=== PATIENT | male | born 1990 | race Caucasian/White ===

== ENCOUNTER 2017-06-14 09:26 | Day surgery (SDC) | payer OTHER ==
--- NOTE | 2017-06-13 09:51 | EKG REPORT ---
SEVERITY:- NORMAL ECG - SINUS RHYTHM : Confirmed by: Alen Peoples 13-Jun-2017 09:51:10
[2017-06-13 10:21] LABS: HEMATOCRIT 44.9 % (37.9-51.0); HEMOGLOBIN 15.7 g/dL (13.5-17.0); MEAN CORPUSCULAR HEMOGLOBIN 31.9 pg (27.0-33.4); MEAN CORPUSCULAR VOLUME 91 fl (80-97); PLATELET COUNT 210 10^3/uL (150-450); RED BLOOD COUNT 4.94 10^6/uL (4.35-5.55); RED CELL DISTRIBUTION WIDTH 12.5 % (11.5-14.0)
[~2017-06-14 09:26] MED LIST: ACETAMINOPHEN 325 MG TABLET PO PRN; BUPIVACAINE HCL 0.25 % INJ/PF (2.5 MG/1 ML) 30 ML VIAL ONE; DEXAMETHASONE SOD PHOSPHATE INJ 4 MG/1 ML VIAL ONE; LACTATED RINGERS 1000 ML IV PRN; LIDOCAINE 0.5% INJ-PF (5 MG/ML) 50 ML SDV SUBCUT PRN; LIDOCAINE 2% INJ-PF (20 MG/ML) 2 ML AMPUL ONE; METOCLOPRAMIDE HCL INJ/PF 10 MG/2 ML SDV ONE; ONDANSETRON HCL INJ/PF 4 MG/2 ML SDV ONE; SUCCINYLCHOLINE CHLORIDE INJ 200 MG/10 ML VIAL ONE; VANCOMYCIN HCL 1,000 MG in DEXTROSE 5%-WATER 250 ML IV PRN
[2017-06-14] MEDS ORDERED: MORPHINE SULFATE 10 MG/ML INJ IV PRN (10:53)
[2017-06-14] MEDS ORDERED: FENTANYL CITRATE INJ/PF 100 MCG/2 ML AMPUL IV PRN ×3 (10:53)
[2017-06-14] MEDS ORDERED: ONDANSETRON HCL INJ/PF 4 MG/2 ML SDV IV PRN ×2 (10:53→13:03)
[2017-06-14] MEDS ORDERED: PROMETHAZINE HCL INJ 25 MG/1 ML VIAL IV PRN ×2 (10:53)
[2017-06-14] MEDS ORDERED: DIPHENHYDRAMINE HCL 50 MG/ML VIAL IV PRN (10:53)
[2017-06-14] MEDS ORDERED: MEPERIDINE HCL/PF INJ 25 MG/1 ML DISP.SYRIN IV PRN (10:53)
[2017-06-14] MEDS ORDERED: FENTANYL CITRATE INJ/PF 100 MCG/2 ML AMPUL ONE ×2 (11:10→11:12)
[2017-06-14] MEDS ORDERED: DEXMEDETOMIDINE INJ 80 MCG/20 ML VIAL IV ONE ×2 (11:11→12:54)
[2017-06-14] MEDS ORDERED: ACETAMINOPHEN 100 ML IV ONE (11:11)
[2017-06-14] MEDS ORDERED: PROPOFOL INJ 200 MG/20 ML VIAL IV ONE (11:11)
[2017-06-14] MEDS ORDERED: MIDAZOLAM 2 MG/2 ML INJ ONE (11:11)
[2017-06-14] MEDS ORDERED: EPHEDRINE SULFATE INJ 50 MG/1 ML AMPULE ONE (11:11)
[2017-06-14] MEDS ORDERED: OXYCODONE-ACETAMINOPHEN 5-325 MG TABLET PO PRN (13:03)
[2017-06-14] MEDS ORDERED: RINGERS SOLUTION,LACTATED 1,000 ML IV PRN (13:03)
--- NOTE | 2017-06-14 13:03 | PDOC DISCHARGE SUMMARY ---
Discharge Summary (SDC) - Discharge Final Diagnosis: Right inguinal hernia Date of Surgery: 06/14/17 Discharge Date: 06/14/17 Condition: Good Treatment or Instructions: Right inguinal hernia repair with mesh. May discharge patient home when met discharge criteria. Follow-up with me in 2 weeks. Stay active but avoid strenuous activity. May shower tomorrow night. Keep Steri-Strips on. Prescriptions: Oxycodone HCl/Acetaminophen [Percocet 5-325 mg Tablet] 1 tab PO ASDIR PRN #25 tablet PRN Reason: Discharge Diet: As Tolerated Discharge Activity: Activity As Tolerated - Stay active but avoid strenuous activity. Report the Following to Your Physician Immediately: Fever over 101 Degrees, Unusual Bleeding, Redness, Drainage-Foul Smelling
--- NOTE | 2017-06-14 13:06 | Operative Report ---
Operative Report DATE OF SURGERY: 06/14/17 PREOPERATIVE DIAGNOSIS: Right inguinal hernia POSTOPERATIVE DIAGNOSIS: Right inguinal hernia OPERATION: Right inguinal hernia repair with mesh ANESTHESIA: GA TISSUE REMOVED OR ALTERED: Hernia sac COMPLICATIONS: None ESTIMATED BLOOD LOSS: Minimal INTRAOPERATIVE FINDINGS: Right indirect inguinal hernia PROCEDURE: Informed consent was obtained. Patient was brought to the operating room placed on the operating room table in the supine position. After satisfactory induction of general anesthesia, patient's right groin was prepped and draped in usual sterile fashion. A transverse right groin incision was made. Dissection was carried down and the external oblique was opened along its fascial fibers thus opening the external inguinal ring. The cord was mobilized at the pubic tubercle. The ilioinguinal nerve was identified and preserved during the dissection. Dissection at the anterior aspect of the cord revealed an indirect inguinal hernia sac. The hernia sac was dissected to the level of the internal ring. It was opened. There were no incarcerated contents. High ligation of the sac was then performed at the level of the internal ring and the sac was excised. Mesh repair was performed with Covidien pro-weigher alloy mesh. The sling ends were brought back together in a sling-like configuration thus re-creating the internal inguinal ring. The mesh laid flat with excellent coverage. A single fixation suture was placed at the pubic tubercle. Hemostasis appeared excellent. Marcaine was injected. The external oblique was closed over the repair and the cord structures using running Vicryl suture. Kaylan's fascia was closed with interrupted Vicryl sutures. Skin was closed with subcuticular running Monocryl suture. Patient tolerated procedure well with no apparent complications and was taken to the recovery area in stable condition.
[2017-06-14] MEDS ORDERED: OXYCODONE-ACETAMINOPHEN 5-325 MG TABLET ONE (14:00)
[2017-06-14 15:29] VITALS: BP 121/75
== END 2017-06-14 14:50 | disposition home or self-care (01) ==
LOC: OROUT 09:26
PROVIDERS: ATTEND Surgery
PROC: 0YU50JZ Supplement Right Inguinal Region with Synthetic Substitute, Open Approach (ICD-10-PCS; principal; 2017-06-14 11:30)
DX: K40.90 Unilateral inguinal hernia, without obstruction or gangrene, not specified as recurrent (principal); Z88.0 Allergy status to penicillin
CPT/HCPCS: 49505; 93005; 36415; 85027; 88302 ×2; 93010; C1781; J2250; J1100; J3490 ×2; J3010; J2765; J0330; J2405; J7060; J2704; J3370; J0131; 830

== ENCOUNTER 2017-09-13 21:16 | Emergency (ER) | payer SELFPAY ==
[2017-09-13] MEDS ORDERED: LIDOCAINE 1% INJ-PF (10 MG/ML) 30 ML SDV INJ ONE (21:28)
--- NOTE | 2017-09-13 22:42 | ER Document Report ---
HPI - HPI Pain Level: 4 Notes: Patient is a 27-year-old male with no significant past medical history who presents to the ED complaining of a laceration to the left thumb and injury with a hatchet prior to arrival. Patient states that part of his distal thumb appeared like a flap, but he was able to control the bleeding with tape/gauze. Patient states that he is still able to move his thumb otherwise without any difficulties. He has no associated numbness or tingling. Patient reports tetanus up-to-date within the last 2 years. He has an allergy to penicillins which was when he was a child and spent the night in the hospital due to the allergic reaction. Denies any IV drug use. Denies any headache, fever, neck pain, URI, sore throat, chest pain, palpitations, syncope, cough, shortness of breath, wheeze, dyspnea, abdominal pain, nausea/vomiting/diarrhea, urinary retention, dysuria, hematuria, numbness/tingling, muscle paralysis/weakness, or rash. - ROS Systems Reviewed and Negative: Yes All other systems reviewed and negative - CONSTITUTIONAL Constitutional: DENIES: Fever, Chills - EENT EENT: DENIES: Sore Throat, Ear Pain, Eye problems - NEURO Neurology: DENIES: Headache, Weakness, Vision blurred, Dizzinesss / Vertigo - CARDIOVASCULAR Cardiovascular: DENIES: Chest pain - RESPIRATORY Respiratory: DENIES: Trouble Breathing, Coughing - GASTROINTESTINAL Gastrointestinal: DENIES: Abdominal Pain, Black / Bloody Stools - URINARY Urinary: DENIES: Dysuria, Urgency, Frequency - MUSCULOSKELETAL Musculoskeletal: REPORTS: Extremity pain - L thumb-cut with axe Past Medical History - Social History Smoking Status: Never Smoker Family History: Reviewed & Not Pertinent Patient has suicidal ideation: No Patient has homicidal ideation: No - Past Medical History Cardiac Medical History: Denies: Hx Coronary Artery Disease, Hx Heart Attack, Hx Hypertension Pulmonary Medical History: Denies: Hx Asthma, Hx Bronchitis, Hx COPD, Hx Pneumonia Neurological Medical History: Denies: Hx Cerebrovascular Accident, Hx Seizures Renal/ Medical History: Denies: Hx Peritoneal Dialysis Musculoskeltal Medical History: Denies Hx Arthritis - Immunizations Hx Diphtheria, Pertussis, Tetanus Vaccination: Yes Vertical Provider Document - CONSTITUTIONAL Agree With Documented VS: Yes Notes: PHYSICAL EXAMINATION: GENERAL: Well-appearing, well-nourished and in no acute distress. LUNGS: Breath sounds clear to auscultation bilaterally and equal. No wheezes rales or rhonchi. HEART: Regular rate and rhythm without murmurs, rubs, gallops. Musculoskeletal: Left hand: FROM to passive/active. Strength 5+/5. N/V intact distal. + tenderness distal thumb. Extremities: No cyanosis, clubbing, or edema b/l. Peripheral pulses 2+. Capillary refill less than 3 seconds. NEUROLOGICAL: Normal speech, normal gait. Normal sensory, motor exams PSYCH: Normal mood, normal affect. SKIN: Left thumb: + laceration irregular, flap-like, to the left half distal digit incorporating the distal nail. - INFECTION CONTROL TRAVEL OUTSIDE OF THE [place] IN LAST 30 DAYS: No Course - Re-evaluation Re-evalutation: 09/13/17 23:25 Patient is an afebrile, well-hydrated, 27-year-old male who presents to the ED with a distal left thumb laceration. Vitals are acceptable. PE is otherwise unremarkable for any neurovascular compromise, obvious tendon/ligament rupture, obvious fracture/dislocation, open fracture. X-ray was unremarkable for any acute pathology otherwise. Wound was thoroughly irrigated and cleansed. Wound edges were approximated appropriately utilizing 6 simple interrupted sutures. Wound dressing was placed as well as a splint. Wound instructions reviewed. Tetanus is reported to be up-to-date. I will send him home with a prophylactic antibiotic of clindamycin. Patient unaware of exact reaction with penicillin, but did have to stay overnight at a hospital when he was a child. Conservative measures otherwise for symptoms. Recheck with your PCM in 2-3 days. Consider consult orthopedics. Return to the ED with any worsening/concerning symptoms otherwise as reviewed discharge. Patient is in agreement. - Vital Signs Vital signs: Temp Pulse Resp BP Pulse Ox 98.4 F 63 16 113/70 98 09/13/17 21:42 09/13/17 21:42 09/13/17 21:42 09/13/17 21:42 09/13/17 21:42 Procedures - Laceration/Wound Repair Left Thumb Time completed: 23:20 Wound length (cm): 2.2 Wound's Depth, Shape: Superficial, Irregular, Flap, Nail-avulsed - distal piece of nail Laceration pre-procedure: Sterile PPE donned, Sterile drapes applied, Other - chlorhexadine/saline Anesthetic type: 1% Lidocaine Volume Anesthetic (mLs): 10 Wound explored: Clean, No foreign body removed Irrigated w/ Saline (mLs): 120 - pt tolerated proc well, no complications Wound Debrided: Minimal Wound Repaired With: Sutures Suture Size/Type: 5:0, 4:0, Nylon Number of Sutures: 6 Layer Closure?: No Post-procedure wound care: Sterile dressing applied, Splint applied Post-procedure NV exam normal: Yes Complications: No Discharge - Discharge Clinical Impression: Thumb laceration Qualifiers: Encounter type: initial encounter Damage to nail status: with damage Foreign body presence: without foreign body Laterality: left Qualified Code(s): S61.112A - Laceration without foreign body of left thumb with damage to nail, initial encounter Condition: Stable Disposition: HOME, SELF-CARE Instructions: Antibiotic Ointment Protection ([facility]), Laceration Care ([facility]), Prophylactic Antibiotic ([facility]), Soap Cleansing ([facility]) Additional Instructions: Do not shower or bathe for 24 hours. After 24 hours you may shower but no submersion of the wound under water. Keep the original dressing on the wound for 24 hours unless the drainage soaks through. Change the dressing daily thereafter and keep the knots of the suture material clean from any dried discharge. You may leave the wound open to the air once there is no more discharge. Return to the ED and/or your PCM in 2-3 days for a recheck. Monitor for any signs of worsening pain or redness, purulent drainage, streaks, and/or fever. Return to the ED if noticing any of the above symptoms or as needed. Take medications as directed. Your sutures will need to be removed in 10 days. Prescriptions: Clindamycin HCl [Cleocin 300 mg Capsule] 300 mg PO BID #20 capsule Referrals: [facility] [Provider Group] - Follow up as needed
--- NOTE | 2017-09-13 22:59 | RADIOLOGY REPORT (SQ) ---
EXAM DESCRIPTION: CR left thumb CLINICAL HISTORY: 27 years Male, Pain s/p injury COMPARISON: None. Findings: Mild swelling of the left thumb. 0.3 cm ossicular body at the ulnocarpal joint. Bones, joints, and soft tissues of the left thumb appear otherwise intact. IMPRESSION: Swelling.
[2017-09-13] MEDS ORDERED: CLINDAMYCIN HCL 150 MG CAPSULE PO ONE (23:29)
[2017-09-13 23:48] VITALS: BP 136/77
== END 2017-09-13 23:47 | disposition home or self-care (01) ==
LOC: ER 21:16
PROC: 0HQGXZZ Repair Left Hand Skin, External Approach (ICD-10-PCS; principal; 2017-09-13)
DX: S61.112A Laceration without foreign body of left thumb with damage to nail, initial encounter (principal); W27.8XXA Contact with other nonpowered hand tool, initial encounter
CPT/HCPCS: 99283; 73140; 12001; J3490

== ENCOUNTER 2018-10-15 17:59 | Emergency (ER) | payer SELFPAY ==
--- NOTE | 2018-10-15 19:35 | ER Document Report ---
ED Medical Screen (RME) - General Chief Complaint: Laceration Stated Complaint: RIGHT FOOT INJURY Time Seen by Provider: 10/15/18 19:32 TRAVEL OUTSIDE OF THE [place] IN LAST 30 DAYS: No - HPI Notes: 10/15/18 19:32 Patient is a 28-year-old male with reported tetanus in the last 3 years who presents complaining of laceration to his left fifth toe by a chainsaw prior to arrival. Patient states that he still able to move his toe without difficulty. No other concerns or complaints at this time. Denies ROLAND, fever, neck pain, URI, CP, SOB, Abd pain, dysuria, back pain, or rash. I have treated and performed a rapid initial assessment of this patient. A comprehensive ED assessment and evaluation of the patient, analysis of test results and completion of medical decision making process will be conducted by additional ED providers. PHYSICAL EXAMINATION: GENERAL: Well-appearing, well-nourished and in no acute distress. A&Ox4. Answers questions appropriately. LUNGS: Breath sounds clear to auscultation bilaterally and equal. No wheezes rales or rhonchi. HEART: Regular rate and rhythm without murmurs, rubs, gallops. Left 5th toe: + irregular laceration/flap like lac noted with bleeding contr olled. N/V intact distal. Cap refill <3 seconds. Pulses intact to foot 2+. - Related Data Allergies/Adverse Reactions: Penicillins Allergy (Verified 10/15/18 18:15) Unknown Past Medical History - Past Medical History Cardiac Medical History: Denies: Hx Coronary Artery Disease, Hx Heart Attack, Hx Hypertension Pulmonary Medical History: Denies: Hx Asthma, Hx Bronchitis, Hx COPD, Hx Pneumonia Neurological Medical History: Denies: Hx Cerebrovascular Accident, Hx Seizures Renal/ Medical History: Denies: Hx Peritoneal Dialysis Musculoskeltal Medical History: Denies Hx Arthritis - Immunizations Hx Diphtheria, Pertussis, Tetanus Vaccination: Yes History of Influenza Vaccine for 02/2017 - 07/2017 Season: No Physical Exam - Vital signs Vitals: Temp Pulse Resp BP Pulse Ox 98.5 F 80 20 129/68 H 100 10/15/18 18:20 10/15/18 18:20 10/15/18 18:20 10/15/18 18:20 10/15/18 18:20 Course - Vital Signs Vital signs: Temp Pulse Resp BP Pulse Ox 98.5 F 80 20 129/68 H 100 10/15/18 18:20 10/15/18 18:20 10/15/18 18:20 10/15/18 18:20 10/15/18 18:20
--- NOTE | 2018-10-15 20:28 | RADIOLOGY REPORT (SQ) ---
EXAM DESCRIPTION: Left foot RadLex: XR FOOT 3 OR MORE VIEWS Views: 3 CLINICAL HISTORY: 28 years Male, 5th toe lac with chainsaw COMPARISON: None. FINDINGS: There is focal soft tissue lucency consistent with laceration at the lateral margin of the 5th toe, adjacent to the DIP joint. On one view, there is a questionable focal cortical defect at the lateral margin of the proximal head of the distal phalanx. Bones are otherwise intact no hyperdense foreign bodies. Overall alignment of the foot is anatomic. IMPRESSION: 1. Focal injury adjacent to the 5th distal phalanx, with subtle cortical injury. 2. No hyperdense foreign bodies.
[2018-10-15] MEDS ORDERED: LIDOCAINE 1% INJ-PF (10 MG/ML) 30 ML SDV INJ ONE (22:11)
[2018-10-15] MEDS ORDERED: PROMETHAZINE HCL 25 MG TABLET PO ONE (22:12)
[2018-10-15] MEDS ORDERED: OXYCODONE-ACETAMINOPHEN 5-325 MG TABLET PO ONE (22:12)
[2018-10-15] MEDS ORDERED: CEFAZOLIN INJ 1 GM VIAL IM ONE (22:12)
[2018-10-15] MEDS ORDERED: BUPIVACAINE HCL 0.5 % INJ/PF 30 ML SDV INJ ONE (22:12)
--- NOTE | 2018-10-15 23:05 | ER Document Report ---
ED Wound - General Chief Complaint: Laceration Stated Complaint: LEFT FOOT INJURY Time Seen by Provider: 10/15/18 19:32 Primary Care Provider: NESTOR BHATTI DO [ACTIVE STAFF] - 10/16/18 Notes: Patient is a 28-year-old male that comes to the emergency department for chief complaint of laceration to the left fifth toe by a chain saw accident. He states he was cutting with a chainsaw when the chainsaw slipped forward and he struck the side of his boot on the outside of the left foot causing a cut through the boot and into the tissue of his foot. He denies any other injuries. His tetanus is up-to-date within 3 years. He denies any other complaints. Is not on a blood thinner or a diabetic TRAVEL OUTSIDE OF THE [place] IN LAST 30 DAYS: No - Related Data Allergies/Adverse Reactions: Penicillins Allergy (Verified 10/15/18 21:12) Unknown Past Medical History - General Information source: Patient - Social History Smoking Status: Former Smoker Frequency of alcohol use: Occasional Drug Abuse: None Lives with: Family Family History: Reviewed & Not Pertinent Patient has suicidal ideation: No Patient has homicidal ideation: No - Past Medical History Cardiac Medical History: Denies: Hx Coronary Artery Disease, Hx Heart Attack, Hx Hypertension Pulmonary Medical History: Denies: Hx Asthma, Hx Bronchitis, Hx COPD, Hx Pneumonia Neurological Medical History: Denies: Hx Cerebrovascular Accident, Hx Seizures Renal/ Medical History: Denies: Hx Peritoneal Dialysis Musculoskeletal Medical History: Denies Hx Arthritis Past Surgical History: Reports: Hx Abdominal Surgery - hernia - Immunizations Hx Diphtheria, Pertussis, Tetanus Vaccination: Yes Review of Systems - Review of Systems Constitutional: No symptoms reported EENT: No symptoms reported Cardiovascular: No symptoms reported Respiratory: No symptoms reported Gastrointestinal: No symptoms reported Genitourinary: No symptoms reported Male Genitourinary: No symptoms reported Musculoskeletal: See HPI Skin: See HPI Hematologic/Lymphatic: No symptoms reported Neurological/Psychological: No symptoms reported Physical Exam - Vital signs Vitals: Temp Pulse Resp BP Pulse Ox 98.5 F 80 20 129/68 H 100 10/15/18 18:20 10/15/18 18:20 10/15/18 18:20 10/15/18 18:20 10/15/18 18:20 - Notes Notes: GENERAL: Alert, interacts well. No acute distress. HEAD: Normocephalic, atraumatic. EYES: Pupils equal, round, and reactive to light. Extraocular movements intact. ENT: Oral mucosa moist, tongue midline. Oropharynx unremarkable. Airway patent. NECK: Full range of motion. Supple. Trachea midline. LUNGS: Clear to auscultation bilaterally, no wheezes, rales, or rhonchi. No respiratory distress. HEART: Regular rate and rhythm. No murmur ABDOMEN: Soft, non-tender. Non-distended. Bowel sounds present in all 4 quadrants. GENITOURINARY: Deferred EXTREMITIES: Macerated laceration over the dorsal lateral aspect of the left fifth digit/toe, capillary refill intact, nail and nail cuticle intact, sensation intact. Patient can still move the toe without difficulty. There are tiny abrasions over the fourth and third toes dorsally, there are no other noted wounds. Normal foot exam otherwise. BACK: no cervical, thoracic, lumbar midline tenderness. No saddle anesthesia, normal distal neurovascular exam. Moves all extremities in full range of motion. NEUROLOGICAL: Alert and oriented x3. Normal speech. Cranial nerves II through XII grossly intact. PSYCH: Normal affect, normal mood. SKIN: Warm, dry, normal turgor. No rashes or lesions noted. Course - Re-evaluation Re-evalutation: X-ray report reading subtle cortical injury to the left fifth digit. Soft tissue injury as well. Because of this patient was given Ancef. Tetanus is already up-to-date. Wound was washed out thoroughly, repaired, he was placed on crutches for the next several days. I discussed with Dr. Hendricks. Patient will take antibiotics, follow-up with orthopedic surgeon, and he was given strict return precautions. Patient states satisfaction and agreement with plan. - Vital Signs Vital signs: Temp Pulse Resp BP Pulse Ox 98.3 F 67 16 135/62 H 98 10/15/18 23:19 10/15/18 23:19 10/15/18 23:19 10/15/18 23:19 10/15/18 23:19 Procedures - Laceration/Wound Repair Left toe Wound length (cm): 2 Wound's Depth, Shape: Irregular Laceration pre-procedure: Sterile PPE donned, Betadine prep applied, Sterile drapes applied Anesthetic type: Other - 6 mL's of mixed and 0.5% bupivacaine and 1% lidocaine used for digital block. Excellent anesthesia achieved without complication. Wound explored: Clean, No foreign body removed Irrigated w/ Saline (mLs): 100 Wound Repaired With: Sutures Suture Size/Type: 4:0, Nylon Number of Sutures: 9 Layer Closure?: No Post-procedure wound care: Sterile dressing applied Post-procedure NV exam normal: Yes Complications: No Notes: Tissue macerated into multiple pieces, this actually did approximately quite well but required 9 stitches despite the small wound. Area was explored and did not show any bony involvement obviously, normal strength against resistance, normal neurovascular exam. Discharge - Discharge Clinical Impression: Injury of left toe Qualifiers: Encounter type: initial encounter Qualified Code(s): S99.922A - Unspecified injury of left foot, initial encounter Toe laceration Qualifiers: Encounter type: initial encounter Toe: lesser toe Damage to nail status: unspecified Foreign body presence: without foreign body Laterality: left Qualified Code(s): S91.115A - Laceration without foreign body of left lesser toe(s) without damage to nail, initial encounter Condition: Stable Disposition: HOME, SELF-CARE Additional Instructions: There is concerned that the side of the bone was injured inside of the wound. The macerated tissue was patched together with sutures. I recommend at least 7 to 10 days before suture removal. Remove the Xeroform (yellow dressing) and over the next 2 days, keep topical antibiotic over the area, keep clean giancarlo ssing. You can clean the area with soap and water, dab dry, avoid soaking or scrubbing. Recommend using the crutches for the first few days as well. Take antibiotic as prescribed, take pain medication if needed, follow-up closely with the orthopedics referral. Call tomorrow to set up your appointment. Return if you worsen in any way including developing pain, swelling, redness, discolored discharge, or any other concerning or worsening symptoms. Prescriptions: Cephalexin Monohydrate [Keflex 500 mg Capsule] 500 mg PO QID 7 Days #28 capsule Hydrocodone/Acetaminophen [[place] 5-325 mg Tablet] 1 - 2 tab PO ASDIR #10 tablet Forms: Return to Work Referrals: NESTOR BHATTI DO [ACTIVE STAFF] - 10/16/18
[2018-10-15 23:21] VITALS: BP 135/62
== END 2018-10-15 23:22 | disposition home or self-care (01) ==
LOC: ER 17:59
DX: S91.115A Laceration without foreign body of left lesser toe(s) without damage to nail, initial encounter (principal); W29.3XXA Contact with powered garden and outdoor hand tools and machinery, initial encounter; Y93.H9 Activity, other involving exterior property and land maintenance, building and construction; Z87.891 Personal history of nicotine dependence; Z88.0 Allergy status to penicillin
CPT/HCPCS: 99283; 96372; 73630; 12001; J3490 ×2; J0690